=== PATIENT | female | born 1985 | race Caucasian/White ===

== ENCOUNTER 2017-10-20 16:53 | Emergency (ER) | payer OTHER ==
[~2017-10-20] VITALS: Ht 170.2 cm; Wt 107.0 kg
[~2017-10-20 16:53] MED LIST: AMITRIPTYLINE100 MG PO; ATIVAN1 MG PO; B COMPLETE1 EACH PO; DAILY MULTIPLE1 EACH PO; DILAUDID4 MG PO; GABAPENTIN600 MG PO; IBUPROFEN600 MG PO; LEVOXYL100 MCG PO; LEVOXYL50 MCG PO; MOBIC15 MG PO; OXYCODONE HCL10 MG PO; VITAMIN D1000 UNI1 PO; ZOFRAN ODT4 MG PO; ZOLOFT100 MG PO
[2017-10-20] MEDS ORDERED: KETOROLAC TROME10 MG PO (18:12)
== END 2017-10-20 18:29 | disposition home or self-care (01) ==
LOC: ED 16:53
DX: S93.401A Sprain of unspecified ligament of right ankle, initial encounter (principal); Z87.891 Personal history of nicotine dependence; Z79.899 Other long term (current) drug therapy; V89.2XXA Person injured in unspecified motor-vehicle accident, traffic, initial encounter
CPT/HCPCS: 73590; 73610; 96372; 99283; J1885

== ENCOUNTER 2019-10-17 00:22 | Emergency (ER) | payer OTHER ==
[~2019-10-17] VITALS: Ht 170.2 cm; Wt 85.7 kg
[~2019-10-17 00:22] MED LIST changes: +IRON240 MG PO; +KETOROLAC TROME10 MG PO; +SYNTHROID175 MCG PO; +VENTOLIN HFA18 GM INH
[2019-10-17] MEDS ORDERED: NEURONTIN600 MG PO (00:34)
[2019-10-17] MEDS ORDERED: KEFLEX500 MG PO (00:39)
== END 2019-10-17 00:58 | disposition home or self-care (01) ==
LOC: ED 00:22
DX: T22.212A Burn of second degree of left forearm, initial encounter (principal); L98.499 Non-pressure chronic ulcer of skin of other sites with unspecified severity; Z23 Encounter for immunization; Z79.899 Other long term (current) drug therapy; W86.8XXA Exposure to other electric current, initial encounter
CPT/HCPCS: 90471; 90715; 99283

== ENCOUNTER 2021-06-30 09:18 | Inpatient (IN) | payer OTHER ==
[~2021-06-30] VITALS: Ht 175.3 cm; Wt 122.5 kg
[~2021-06-30 09:18] MED LIST changes: +KEFLEX500 MG PO; +NEURONTIN600 MG PO
--- NOTE | 2021-06-30 09:50 | NUR ---
both nares swabbed for covid-19 without complication. sample taken to lab.
--- NOTE | 2021-06-30 15:06 | PR ---
[facility] [address] [facility] [place], [place] [address] Signed Progress Notes IP Datetime Report Generated by CPN: 06/30/2021 15:05 PROGRESS NOTES: [id number] Impression: Normal Progression of Labor; Reassuring Heart Rate Procedures: Sterile Vag Exam Plan: Continue Present Management; Anticipate Vaginal Delivery Informed Consent Obtain: Vaginal Delivery VITAL SIGNS: [id number] Vital Signs: Reviewed; Within Normal Limits EXAM: [id number] Dilatation: 10.0 Effacement: 100 Station: 0 Contractions: Irregular MEMBRANES: [id number] Comments: Pt seen and examined. Doing well. Complete and pushing well w/ contractions. Anticipate soon. FETUS A: [id number] FHR Baseline: 125 Variability: Moderate 6-25bpm Accelerations: None Decelerations: None FHR Category: Category I Presentation: Vertex Comments on Fetus A: No evidence of metabolic acidosis FETUS B: [id number] Signing Physician: Salvador Mcgee DO Copies: ~ *Electronically Signed* 06/30/21 1505 SALVADOR MCGEE DO PATIENT NAME: RAFAEL LOVE PROGRESS NOTE DATE OF : 83 PHYSICIAN: SALVADOR MCGEE DO RPT #: [id number] REPORT IS CONFIDENTIAL AND NOT TO BE RELEASED WITHOUT AUTHORIZATION
--- NOTE | 2021-06-30 16:00 | PR ---
[facility] [address] [place], [place] [address] Signed Progress Notes IP Datetime Report Generated by CPN: 06/30/2021 16:00 PROGRESS NOTES: [id number] Impression: Normal Progression of Labor Procedures: Sterile Vag Exam Plan: Anticipate Vaginal Delivery Informed Consent Obtain: Vaginal Delivery VITAL SIGNS: [id number] Vital Signs: Reviewed; Within Normal Limits EXAM: [id number] Dilatation: 10.0 Effacement: 100 Station: 0 Contractions: Irregular MEMBRANES: [id number] Comments: Physician has been at pt's bedside pushing w/ contractions. Little to no descent w/ pushing efforts. Multiple positions attempted and now pt in hands and knees. Reviewed anticipated progress and recommend continue pushing efforts. Reviewed adequate pelvis and EFW. Again reviewed risk of dystocia and maneuvers employed should it been encountered. Reviewed indications for if needed. Pt desires to continue w/ trial of vaginal delivery FETUS A: [id number] FHR Baseline: 125 Variability: Moderate 6-25bpm Accelerations: None Decelerations: None FHR Category: Category I Presentation: Vertex Comments on Fetus A: No evidence of metabolic acidosis FETUS B: [id number] Signing Physician: Salvador Mcgee DO Copies: ~ *Electronically Signed* 06/30/21 1600 SALVADOR MCGEE DO PATIENT NAME: RAFAEL LOVE PROGRESS NOTE DATE OF : 83 PHYSICIAN: SALVADOR MCGEE DO RPT #: [id number] REPORT IS CONFIDENTIAL AND NOT TO BE RELEASED WITHOUT AUTHORIZATION
--- NOTE | 2021-06-30 17:02 | PR ---
[facility] [address] [place], [place] [address] Signed Progress Notes IP Datetime Report Generated by CPN: 06/30/2021 17:02 PROGRESS NOTES: [id number] Impression: Arrest of Dilatation/Descent Procedures: Sterile Vag Exam Plan: Deliver- Section Informed Consent Obtain: Section Delivery VITAL SIGNS: [id number] Vital Signs: Reviewed; Within Normal Limits EXAM: [id number] Dilatation: 10.0 Effacement: 100 Station: 0 Contractions: Irregular MEMBRANES: [id number] Comments: Continued pushing w/ contractions with no descent noted over 2 hrs. Discussed adequate pelvis and EFW >97% and risks / benefits of C/S vs trial of vaginal delivery. Reviewed ACOG Safe Prevention of the Primary and recommendations for C/S in multiparous patients after 2 hrs of pushing unless mitigating factors. Given growth and lack of any descent, recommend C/S. Pt and understand and agree. FETUS A: [id number] FHR Baseline: 125 Variability: Moderate 6-25bpm Accelerations: None Decelerations: None FHR Category: Category I Presentation: Vertex Comments on Fetus A: No evidence of metabolic acidosis FETUS B: [id number] Signing Physician: Salvador Mcgee DO Copies: ~ *Electronically Signed* 06/30/21 6096 SALVADOR MCGEE DO PATIENT NAME: RAFAEL LOVE ROBERTO PROGRESS NOTE DATE OF : 83 PHYSICIAN: SALVADOR MCGEE DO RPT #: [id number] REPORT IS CONFIDENTIAL AND NOT TO BE RELEASED WITHOUT AUTHORIZATION
--- NOTE | 2021-06-30 18:36 | NUR ---
06/30/211835 JERO FAROOQ 1829 PATIENT BACK INTO ROOM FROM OR. LAVERNE HERR PROVIDED BEDSIDE REPORT. PATIENT REPORTS PAIN 1/10 ON PAIN SCALE. VSS STABLE. FUNDAL CHECKS WNL. PATIENT AWAKE, CONVERSING EASILY. 1835 PATIENT HOLDING BABY. VSS STABLE. FUNDAL CHECK WNL. PATIENT STATES PAIN IS WELL CONTROLLED.
--- NOTE | 2021-07-01 16:21 | PR ---
[facility] [address] [facility] [place], [place] [address] Signed PP Progress Notes Datetime Report Generated by CPN: 07/01/2021 16:21 SUBJECTIVE: [id number] Pain: Within Normal Limits Nausea/Vomiting: Denies Flatus: Yes Bowel Movement: No Vital Signs: [id number] Vital Signs: Reviewed; Within Normal Limits EXAM: Ongoing Cardiovascular: Normal Respiratory: Normal Abdomen/Uterus: Normal Lochia: Normal CVA Tenderness: Normal Extremities: Normal Incision: Normal Progress: Normal Exam Comments: Fundus firm U-2 nontender. Incision healing well IMPRESSION/PLAN/PROCEDURES: [id number] Impression: Normal Progression Plan: Continue Present Management Progress Notes: Pt seen and examined. Doing well. Ambulating and tolerating full diet. Pain and lochia minimal. well. No fevers/chills/other concerns. Desires d/c home tomorrow. Hgb 8.7 Signing Physician: Salvador Mcgee DO Copies: ~ *Electronically Signed* 07/01/21 1621 SALVADOR MCGEE DO PATIENT NAME: RAFAEL LOVE PROGRESS NOTE DATE OF : 83 PHYSICIAN: SALVADOR MCGEE DO RPT #: [id number] REPORT IS CONFIDENTIAL AND NOT TO BE RELEASED WITHOUT AUTHORIZATION
--- NOTE | 2021-07-02 08:59 | PR ---
[facility] [address] [place], [place] [address] Signed PP Progress Notes Datetime Report Generated by CPN: 07/02/2021 08:59 SUBJECTIVE: [id number] Pain: Within Normal Limits Nausea/Vomiting: Denies Flatus: Yes Bowel Movement: Yes Vital Signs: [id number] Vital Signs: Reviewed; Within Normal Limits EXAM: Ongoing Cardiovascular: Normal Respiratory: Normal Abdomen/Uterus: Normal Lochia: Normal Vulva/Perineum: Normal CVA Tenderness: Normal Extremities: Normal Incision: Normal Progress: Normal Exam Comments: Fundus firm U-2 nontender. Incision healing well. IMPRESSION/PLAN/PROCEDURES: [id number] Impression: Normal Progression Plan: Remove Rayne; Discharge Progress Notes: Pt seen and examined. Doing well. Ambulating, voiding, and tolerating full diet. Pain and lochia minimal. well. No fevers chills or other concerns. Desires d/c home todaoy. Reviewed discharge instructions in detail. Signing Physician: Salvador Mcgee DO Copies: ~ *Electronically Signed* 07/02/21 0859 SALVADOR MCGEE DO PATIENT NAME: RAFAEL LOVE PROGRESS NOTE DATE OF : 83 PHYSICIAN: SALVADOR MCGEE DO RPT #: [id number] REPORT IS CONFIDENTIAL AND NOT TO BE RELEASED WITHOUT AUTHORIZATION
== END 2021-07-02 12:02 | disposition home or self-care (01) | DRG 788 ==
LOC: FBCO 09:18 → FBC 09:45
PROVIDERS: ADMIT Obstetrics & Gynecology; ATTEND Obstetrics & Gynecology
PROC: 10D00Z1 Extraction of Products of Conception, Low, Open Approach (ICD-10-PCS; principal; 2021-06-30 17:02)
DX: O36.63X0 Maternal care for excessive fetal growth, third trimester, not applicable or unspecified (principal); O99.284 Endocrine, nutritional and metabolic diseases complicating childbirth; E03.9 Hypothyroidism, unspecified; O99.344 Other mental disorders complicating childbirth; Z20.822 Contact with and (suspected) exposure to COVID-19; O99.52 Diseases of the respiratory system complicating childbirth; J45.909 Unspecified asthma, uncomplicated; F32.A Depression, unspecified; O62.1 Secondary uterine inertia; O69.81X0 Labor and delivery complicated by cord around neck, without compression, not applicable or unspecified; Z3A.37 37 weeks gestation of pregnancy; Z37.0 Single live birth; Z87.891 Personal history of nicotine dependence
CPT/HCPCS: 64488; 76942; 85027; A9270; C9803; J0456; J0690; J1100; J1170; J1650; J1885; J2274; J2370; J2405; J2590; J2795; J3010; J7060; J7121; U0003

== ENCOUNTER 2021-07-04 00:21 | Emergency (ER) | payer OTHER ==
[~2021-07-04] VITALS: Ht 182.9 cm; Wt 123.4 kg
[2021-07-04] MEDS ORDERED: OXYCODONE-ACET1 EAC1 PO (01:25)
[2021-07-04] MEDS ORDERED: IBUPROFEN800 MG PO (01:25)
== END 2021-07-04 04:10 | disposition home or self-care (01) ==
LOC: ED 00:21
DX: O90.89 Other complications of the puerperium, not elsewhere classified (principal); R51.9 Headache, unspecified; R10.9 Unspecified abdominal pain; M79.89 Other specified soft tissue disorders; O99.13 Other diseases of the blood and blood-forming organs and certain disorders involving the immune mechanism complicating the puerperium; R74.01 Elevation of levels of liver transaminase levels; Z87.891 Personal history of nicotine dependence
CPT/HCPCS: 80048; 80076; 81001; 83615; 83735; 84550; 85025; 96374; 99284-25; J1885